=== PATIENT | male | born 1990 | race African-American/Black ===

== ENCOUNTER 2020-07-05 15:55 | Emergency (ER) | payer OTHER ==
[2020-07-05] MEDS ORDERED: Ketorolac Tromethamine 60 MG/2 ML VIAL ONE (16:18)
[2020-07-05] MEDS ORDERED: Ibuprofen 800 MG TAB ONE (16:21)
[2020-07-05] MEDS ORDERED: Lorazepam 2 MG/ML VIAL ONE (16:33)
== END 2020-07-05 16:25 ==
LOC: NAV ERS 15:55
DX: R07.9 Chest pain, unspecified (principal); K21.9 Gastro-esophageal reflux disease without esophagitis; Z79.899 Other long term (current) drug therapy
CPT/HCPCS: 93005; J1885; J2060